=== PATIENT | male | born 1985 | race Caucasian/White ===

== ENCOUNTER 2016-07-19 12:15 | Emergency (ER) | payer MEDICARE ==
[2016-02-04 13:35] VITALS: BMI 27.0
[~2016-07-19 12:15] MED LIST: COZAAR50 MG PO; DILT; DILT-XR240 MG PO; LEVAQUIN750 MG PO; NORMODYNE / TR300 MG PO; OMEPRAZOLE40 MG PO; RENVELA800 MG PO; SINGULAIR10 MG PO; XANAX0.5 MG PO; ZITHROMAX250 MG PO
== END 2016-07-19 13:55 | disposition home or self-care (01) ==
LOC: D.ER 12:15
DX: I12.0 Hypertensive chronic kidney disease with stage 5 chronic kidney disease or end stage renal disease (principal); N18.6 End stage renal disease; Z99.2 Dependence on renal dialysis

== ENCOUNTER 2017-10-22 11:08 | Emergency (ER) | payer MEDICARE ==
[~2017-10-22] VITALS: Ht 182.9 cm; Wt 82.0 kg
[2017-10-22 11:12] VITALS: Ht 182.9 cm; Wt 82.0 kg
[2017-10-22] MEDS ORDERED: CATAPRES0.1 MG PO (11:15)
[2017-10-22] MEDS ORDERED: ATARAX 25 MG TA25 MG PO (12:20)
[2017-10-22 13:03] VITALS: BP 179/89
== END 2017-10-22 13:05 | disposition home or self-care (01) ==
LOC: D.ER 11:08
DX: G47.00 Insomnia, unspecified (principal); I10 Essential (primary) hypertension; K21.9 Gastro-esophageal reflux disease without esophagitis